=== PATIENT | male | born 1995 | race Caucasian/White ===

== ENCOUNTER 2017-05-24 22:40 | Emergency (ER) | payer BC ==
[~2017-05-24] VITALS: Ht 182.9 cm; Wt 86.7 kg
[2017-05-24] MEDS ORDERED: ONDANSETRON 2MG/ML, 2ML ONE (23:50)
[2017-05-24] MEDS ORDERED: KETOROLAC 30 MG/1 ML ONE (23:50)
[2017-05-25] LABS: MEAN CORPUSCULAR HEMOGLOBIN 29.9 pg (27.5-34.5); MEAN CORPUSCULAR HGB CONC 33.6 g/dL (33.2-36.2); MEAN CORPUSCULAR VOLUME 89.1 fL (81-97); MEAN PLATELET VOLUME 8.4 fL (7.4-10.4); PLATELET COUNT 219 x10^3/uL (130-400); RED BLOOD COUNT 5.85 x10^6/uL (4.38-5.82); RED CELL DISTRIBUTION WIDTH 12.9 % (9.4-14.8)
[2017-05-25] MEDS ORDERED: KETOROLAC 30 MG/1 ML IVPush ONE
[2017-05-25] MEDS ORDERED: ONDANSETRON 2MG/ML, 2ML IVPush ONE
[2017-05-25] MEDS ORDERED: SODIUM CHLORIDE 0.9% 1,000ML IVBOLUS ONE
[2017-05-25 00:04] LABS: ALANINE AMINOTRANSFERASE 30 U/L (12-78); ALBUMIN 5.2 g/dL (3.4-5.0); ANION GAP 12 mmol/L (5-15); CALCIUM 9.6 mg/dL (8.5-10.1); CHLORIDE 103 mmol/L (98-107); CREATININE 1.42 mg/dL (0.7-1.3)
[2017-05-25 00:06] LABS: ALKALINE PHOSPHATASE 114 U/L (45-117); BILIRUBIN,TOTAL 2.3 mg/dL (0.2-1.0); TOTAL PROTEIN 9.5 g/dL (6.4-8.2)
[2017-05-25 00:31] LABS: BASOPHILS # (AUTO) 0.01 x10^3/uL (0-0.3); BASOPHILS % (AUTO) 0 % (0-1); EOSINOPHILS # (AUTO) 0.05 x10^3/uL (0-0.8); EOSINOPHILS % (AUTO) 0 % (1-7); LYMPHOCYTES # (AUTO) 0.38 x10^3/uL (1-6.1); LYMPHOCYTES % (AUTO) 3 % (22-44); MD SCAN; MONOCYTES # (AUTO) 0.54 x10^3/uL (0-1.4); MONOCYTES % (AUTO) 4 % (2-9); NEUTROPHILS # (AUTO) 14.41 x10^3/uL (1.8-8.0); NEUTROPHILS % (AUTO) 94 % (42-75)
[2017-05-25 02:24] LABS: MICROSCOPIC INDICATED
[2017-05-25 02:29] LABS: CULTURE INDICATED? NO
[2017-05-25] MEDS ORDERED: ONDANSETRON ODT 4 MG ONE (02:50)
[2017-05-25 03:21] VITALS: BP 113/56
== END 2017-05-25 03:23 | disposition home or self-care (01) ==
LOC: ED 23:29
DX: A09 Infectious gastroenteritis and colitis, unspecified (principal)
CPT/HCPCS: 36415; 80053; 81001; 83690; 85025; 96361; 96374; 96375; 99284; J1885; J2405; J7030

== ENCOUNTER 2019-12-01 14:44 | Emergency (ER) | payer BC ==
[~2019-12-01] VITALS: Ht 182.9 cm; Wt 83.0 kg
[2019-12-01 14:48] VITALS: BP 117/59
[2019-12-01] MEDS ORDERED: DEXAMETHASONE 4 MG TABLET PO ONE (15:30)
[2019-12-01] MEDS ORDERED: DEXAMETHASONE 4 MG TABLET ONE (15:33)
== END 2019-12-01 15:59 | disposition home or self-care (01) ==
LOC: ED 15:45
DX: J02.0 Streptococcal pharyngitis (principal); Z20.828 Contact with and (suspected) exposure to other viral communicable diseases; J45.909 Unspecified asthma, uncomplicated
CPT/HCPCS: 36415; 87635; 87880; 99283